=== PATIENT | female | born 1940 | race American Indian/Alaskan Native ===

== ENCOUNTER → 2016-07-02 | Outpatient (CLI) | payer MEDICARE, MEDICAID ==
[~2016-07-02] MED LIST: ASPI325T32 PO; HYDR-3498 PO; ULT50 PO
--- NOTE | 2016-07-02 12:01 | RADRPT ---
PROCEDURE: XR Right hip and pelvis. CLINICAL INDICATION: Right hip pain. Pelvic pain. Postop. TECHNIQUE: Three views. Frontal pelvis. Frontal and lateral right hip. COMPARISON: 04/30/2016. FINDINGS: There is no fracture or dislocation. The soft tissues are normal. There is a right hip total arthroplasty which appears satisfactory. There are degenerative changes of the left hip with osteophytes noted. There is no lytic or blastic lesion. There are degenerative changes of the lower lumbar spine. IMPRESSION: 1. Satisfactory postoperative appearance of the right hip. 2. Mild degenerative changes of the left hip. 3. Degenerative changes of the lower lumbar spine. RPTAT: QQ .Kvng Tang MD, MD Date Time Electronically viewed and signed by .Kvng Tang MD, on 07/02/2016 12:00 .R/
== END | disposition home or self-care (01) ==
LOC: HKI 09:58
PROVIDERS: ATTEND Orthopaedic Surgery
DX: Z47.1 Aftercare following joint replacement surgery (principal); Z96.641 Presence of right artificial hip joint
CPT/HCPCS: 73502; G0463